=== PATIENT | male | born 1950 | race Caucasian/White ===

== ENCOUNTER 2017-10-18 06:58 | Emergency (ER) | payer SELFPAY ==
[2017-10-18 07:07] VITALS: O2SAT 95
--- NOTE | 2017-10-18 07:17 | EDPHY ---
H & P HPI/ROS: CHIEF COMPLAINT: Back pain HISTORY OF PRESENT ILLNESS: The patient is a 67 y/o male complaining of worsening back pain onset 2 months ago. A couple months ago, he noticed pain in his lumbar spine that extended into his right buttocks, down the front of his thigh, and at times into his lujan. Two weeks ago, the pain worsened, prompting him to begin using a walker. Two days ago the pain worsened prompting his visit. He denies any urinary incontinence, bowel incontinence, numbness, weakness, or any other associated symptoms. He denies trauma or any other precipitating factors. He denies history of hypertension, diabetes, cancer, HIV , TB, recent illness or any other chronic or acute condition. REVIEW OF SYSTEMS: A ten point review of systems was performed and is negative with the exception of the items mentioned in the HPI. Past medical history: Denies Past surgical history: Denies Family history: Non-contributory Social history: Lives in [place], nonsmoker, retired, former heating and air conditioner food technician General Appearance: Alert. Vital signs reviewed. Blood pressure 176/90. Eyes: Pupils equal and round, no conjunctival injection, no discharge. Anicteric. ENT, Mouth: Mucous membranes are moist, no oropharyngeal erythema or edema. Neck: No lymphadenopathy, supple. Respiratory: Lungs are clear to auscultation; no wheezes, rales, or rhonchi. Cardiovascular: Regular rate and rhythm; no murmur, rub, or gallop. Gastrointestinal: Abdomen is soft and nontender, no masses or organomegaly, bowel sounds normal. Skin: Warm and dry, no rashes on exposed skin, normal color. Back: Nontender to palpation over the thoracolumbar spine. No CVAT. Extremities: No lower extremity edema, no calf tenderness or swelling. Neurological: Alert and oriented. In both lower extremities strength is 5 over 5 bilaterally with testing of all major motor groups. Sensation is intact to light touch over all 4 extremities. Deep tendon reflexes are 2+ in the knees left knee, absent in the right knee and 1+ in ankles bilaterally. Gait is antalgic. Psychiatric: Flat affect. - Personal History Current Tetanus/Diphtheria Vaccine: Unsure Current Tetanus Diphtheria and Acellular Pertussis (TDAP): Unsure - Medical/Surgical History Hx Asthma: No Hx Chronic Respiratory Disease: No Hx Diabetes: No Hx Cardiac Disease: No Hx Renal Disease: No Hx Cirrhosis: No Hx Alcoholism: No Hx HIV/AIDS: No Hx Splenectomy or Spleen Trauma: No Other PMH: HERNIA REPAIR - Social History Smoking Status: Never smoked Constitutional: Initial Vital Signs Temperature (C) 36.6 C 10/18/17 07:00 Heart Rate 77 10/18/17 07:00 Respiratory Rate 16 10/18/17 07:00 Blood Pressure 176/90 H 10/18/17 07:00 O2 Sat (%) 95 10/18/17 07:00 O2 Delivery Mode Room Air Allergies/Adverse Reactions: No Known Allergies Allergy (Unverified 10/18/17 07:07) Home Medications: Medication Instructions Recorded Cyclobenzaprine [Flexeril 10 MG 10 mg PO TID PRN #9 tab 10/18/17 (*)] Hydrocodone/APAP 5/325 [[place] 1 - 2 tab PO Q4 PRN #14 tab 10/18/17 5/325 (RX)] Medical Decision Making ED Course/Re-evaluation: Study: MRI of the spine Indication: Pain in the lower back extending into the right leg Results: MRI of the spine was obtained. 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 The study was read by the radiologist, Dr. Queen. I viewed the images myself on the PACS system. I offered the patient anti-inflammatory and pain relief mediation. He initially declined pain relief medications and was tentative to have antiinflammatory medicine. He later accepted both medications (Dilaudid 0.5 mg IV and toradol 30 mg IV, plus lidocaine patch) and agreed to an MRI. I am unable to definitely determine if he has weakness in the right foot, though I am suspicious as he bought a walker two weeks ago to help with ambulation. Individual strength is 5/ 5 right plantar/dorsi/EHL. MRI shows neuroforaminal stenosis due to facet hypertrophy and disc bulging. On reassessment he is more comfortable but continues to have pain. He is still ambulating with the help of his walker. He will need follow up with a internet security specialist or neurosurgeon. The patient agrees to this plan. Referrals provided. Follow up instructions and return precautions given. I have not found a reason for emergent consult or surgery, but have not provided significant pain relief either (he does not want to take medications). I do not suspect serious pathology such as cancer or infection. Differential Diagnosis: I considered a ddx that includes but is not limited to UTI/pyelonephritis, tumor , discitis, spinal cord compression, nerve root compression, cauda equina syndrome, musculoskeletal back pain. - Data Points Medications Given: Discontinued Medications Hydrocodone Bitart/Acetaminophen ([place] 5/325mg Prepack#6) 1 btl TAKEHOME EDNOW ONE Stop: 10/18/17 14:19 Last Admin: 10/18/17 14:59 Dose: 1 btl Cyclobenzaprine HCl (Flexeril 10 Mg Prepack#3) 1 btl TAKEHOME EDNOW ONE Stop: 10/18/17 14:19 Last Admin: 10/18/17 14:57 Dose: 1 btl Hydromorphone HCl (Dilaudid) 0.5 mg IVP EDNOW ONE Stop: 10/18/17 11:12 Last Admin: 10/18/17 11:18 Dose: 0.5 mg Ketorolac Tromethamine (Toradol) 30 mg IVP EDNOW ONE Stop: 10/18/17 07:39 Last Admin: 10/18/17 08:22 Dose: 30 mg Lidocaine (Lidoderm 5%) 1 ea TD EDNOW ONE Stop: 10/18/17 07:41 Last Admin: 10/18/17 08:21 Dose: 1 ea Departure - Departure Disposition: Home, Routine, Self-Care Clinical Impression: Back pain Qualifiers: Back pain location: low back pain Chronicity: acute Back pain laterality: right Sciatica presence: with sciatica Sciatica laterality: sciatica of right side Qualified Code(s): M54.41 - Lumbago with sciatica, right side Condition: Good Instructions: Hydrocodone/Acetaminophen (By mouth), Cyclobenzaprine (By mouth) , Back Pain (ED) Additional Instructions: 1. Take Vicodin and Flexeril as directed as needed for pain. Take 400 to 600 mg of ibuprofen every 6 to 8 hours with food for 5 to 7 days 2. Follow-up with neurosurgery or [facility]. 3. Return to the ED for weakness in your right leg, trouble controlling your bowels or bladder, or other worsening of condition. Referrals: Sai Estrada MD [Medical Doctor] - As per Instructions Vinay Adame MD [Medical Doctor] - As per Instructions Staci Contreras MD [Medical Doctor] - As per Instructions Prescriptions: Cyclobenzaprine [Flexeril 10 MG (*)] 10 mg PO TID PRN #9 tab PRN Reason: Spasms Hydrocodone/APAP 5/325 [[place] 5/325 (RX)] 1 - 2 tab PO Q4 PRN #14 tab PRN Reason: pain Report Scribed for: Vesta Butler Report Scribed by: Chrissy Robles Date of Report: 10/18/17 Time of Report: 07:46 Physician Review and Approval Statement: 10/18/17 07:17 Portions of this note were transcribed by the medical delivery technician. I, Dr. Vesta Butler, personally performed the history, physical exam, and medical decision- making; and confirmed the accuracy of the information in the transcribed note.
[2017-10-18] MEDS ORDERED: KETOROLAC 30 MG/1 ML SDV IVP ONE (07:38)
[2017-10-18] MEDS ORDERED: LIDOCAINE 5% 1 EA PATCH TD ONE (07:40)
[2017-10-18] MEDS ORDERED: HYDROmorphONE/DILAUDID 1 MG/ML INJ IVP ONE (11:11)
[2017-10-18] MEDS ORDERED: HYDROCOD/APAP 5/325 PREPACK#6 BTL TAKEHOME ONE (14:18)
[2017-10-18] MEDS ORDERED: CYCLOBENZAPRINE 10MG PREPACK#3 BTL TAKEHOME ONE (14:18)
[2017-10-18 15:01] VITALS: BP 151/94; PULSE 78; RESP 18; TEMP 98.2
[2017-10-18] MEDS ORDERED: PATCH REMOVAL 1 EA PATCH TD SCH (21:00)
== END 2017-10-18 15:00 | disposition home or self-care (01) ==
LOC: EDUNIT#
DX: M54.41 Lumbago with sciatica, right side (principal)
CPT/HCPCS: 96374; J1170; J1885

== ENCOUNTER 2017-11-11 08:34 | Emergency (ER) | payer SELFPAY ==
[2017-11-11 08:41] VITALS: PULSE 77; RESP 16
[2017-11-11] MEDS ORDERED: ONDANSETRON 4 MG/2 ML VIAL IVP ONE (09:18)
[2017-11-11] MEDS ORDERED: FAMOTIDINE 20 MG/NACL 50 ML IV ONE (09:18)
[2017-11-11] MEDS ORDERED: LIDOCAINE 2% VISCOUS 15 ML UDCUP PO ONE (09:18)
[2017-11-11] MEDS ORDERED: MAG HYDROX/AL HYDROX/SIMETH 30 ML UDCUP PO ONE (09:18)
[2017-11-11] MEDS ORDERED: NS 1,000 ML IV ONE (09:18)
--- NOTE | 2017-11-11 09:23 | EDPHY ---
H & P Time Seen by Provider: 11/11/17 09:14 HPI/ROS: HPI Upper abdominal pain. 67-year-old male on foot. This patient reports that he was taking ibuprofen several times a day 400-600 mg for 2-3 weeks. About a week ago he developed upper mid abdominal pain which she describes as a cramping sensation which comes on in waves of intensity. He reports he stopped taking ibuprofen about 1 week ago. He has also had a loss of appetite. He denies any vomiting. No bloody or melenic stool. He had a few bites of food earlier this morning but states he does not have much of an appetite. He currently does not have abdominal pain. ROS: Constitutional: No fever, no chills. No weakness. Eyes: No discharge. No changes in vision. ENT: No sore throat. No nasal congestion or rhinorrhea. Respiratory: No cough. No shortness of breath. Cardiac: No chest pain, no palpitations. Gastrointestinal: As above, no vomiting, no diarrhea. Genitourinary: No hematuria. No dysuria or increased frequency with urination. Musculoskeletal: No back pain. No neck pain. No myalgias or arthralgias. Skin: No rashes. Neurological: No headache. No focal weakness or altered sensation. Past medical history: Hernia repair, chronic back pain. Social history: He is here by himself. Nonsmoker. Denies alcohol. Physical Exam: General Appearance: Alert, no distress. This patient is responding to questions appropriately and in full sentences. This patient appears well- hydrated and well-nourished. Eyes: Pupils equal and round no pallor or injection. No lid edema, erythema or injection. Respiratory: There are no retractions, lungs are clear to auscultation with good air movement bilaterally. Cardiovascular: Regular rate and rhythm. No murmur. Gastrointestinal: Abdomen is soft and nontender throughout on deep palpation, no masses, bowel sounds normal. No focal tenderness at McBurney's point. No Pisano sign. Neurological: Motor sensory function is grossly intact. Cranial nerves are normal. Gait is normal. Skin: Warm and dry, no rashes. Musculoskeletal: Neck is supple and nontender. Extremities are symmetrical. All joints range without pain or impingement. Psychiatric: No agitation. Flat affect. Database: EKG: Imaging: Upright abdominal x-ray: No free air. No obstructive pattern. Moderate stool. Otherwise unremarkable. Interpreted by me. Procedures: Emergency department course: IV placed. Vital signs reviewed. He was started on IV normal saline with 1 L to be given over the next hour. He will be given 20 mg of IV Pepcid, 4 mg of IV Zofran, viscous lidocaine and Maalox. 10:35 a.m., patient re-evaluated. Resting comfortably at this time. Results of his x-ray as well as blood work discussed with him. Repeat abdominal exam is soft, nontender nondistended as initially. He feels comfortable going home and I feel he is safe for discharge. I instructed him not to use ibuprofen or NSAID medications for pain. I will prescribe a proton pump inhibitor. I will have him follow up with his primary care physician for re-evaluation in the next few days. He endorses this plan. All of his questions were answered. Return to emergency department precautions discussed. He was discharged in good condition. Differential Diagnosis: The differential diagnosis on this patient includes but is not limited to gastritis. Ulcerative gastritis, perforated peptic ulcer, pancreatitis, cholecystitis unlikely. This represents a partial list of diagnoses considered. These considerations are based on history, physical exam, past history, reassessment and diagnostic testing. Smoking Status: Never smoked Constitutional: Initial Vital Signs Temperature (C) 36.7 C 11/11/17 08:36 Heart Rate 77 11/11/17 08:36 Respiratory Rate 16 11/11/17 08:36 Blood Pressure 153/88 H 11/11/17 08:36 O2 Sat (%) 94 11/11/17 08:36 O2 Delivery Mode Room Air Allergies/Adverse Reactions: No Known Allergies Allergy (Verified 11/11/17 08:35) Home Medications: Medication Instructions Recorded Pantoprazole Sodium [Protonix] 40 mg PO DAILY #30 tab 11/11/17 Medical Decision Making - Diagnostics Imaging Results: Imaging Impressions Abdomen X-Ray 11/11/17 09:20 Impression: 1. Nonspecific bowel gas pattern. Moderate pain stool right colon. - Data Points Laboratory Results: Laboratory Results 11/11/17 09:25 11/11/17 09:25 11/11/17 11/11/17 09:25 09:25 WBC 10.09 10^3/uL H 10^3/uL (3.80-9.50) RBC 5.11 10^6/uL 10^6/uL (4.40-6.38) Hgb 15.4 g/dL g/dL (13.7-17.5) Hct 44.7 % % (40.0-51.0) MCV 87.5 fL fL (81.5-99.8) MCH 30.1 pg pg (27.9-34.1) MCHC 34.5 g/dL g/dL (32.4-36.7) RDW 13.1 % % (11.5-15.2) Plt Count 145 10^3/uL L 10^3/uL (150-400) MPV 12.6 fL H fL (8.7-11.7) Neut % (Auto) 70.2 % % (39.3-74.2) Lymph % (Auto) 18.5 % % (15.0-45.0) Archer % (Auto) 8.7 % % (4.5-13.0) Eos % (Auto) 1.3 % % (0.6-7.6) Baso % (Auto) 0.7 % % (0.3-1.7) Nucleat RBC Rel Count 0.0 % % (0.0-0.2) Absolute Neuts (auto) 7.08 10^3/uL H 10^3/uL (1.70-6.50) Absolute Lymphs (auto) 1.87 10^3/uL 10^3/uL (1.00-3.00) Absolute Monos (auto) 0.88 10^3/uL H 10^3/uL (0.30-0.80) Absolute Eos (auto) 0.13 10^3/uL 10^3/uL (0.03-0.40) Absolute Basos (auto) 0.07 10^3/uL 10^3/uL (0.02-0.10) Absolute Nucleated RBC 0.00 10^3/uL 10^3/uL (0-0.01) Immature Gran % 0.6 % % (0.0-1.1) Immature Gran # 0.06 10^3/uL 10^3/uL (0.00-0.10) Sodium 140 mEq/L mEq/L (135-145) Potassium 4.4 mEq/L mEq/L (3.5-5.2) Chloride 102 mEq/L mEq/L (97-110) Carbon Dioxide 25 mEq/l mEq/l (22-31) Anion Gap 13 mEq/L mEq/L (8-16) BUN 17 mg/dL mg/dL (7-23) Creatinine 1.0 mg/dL mg/dL (0.7-1.3) Estimated GFR > 60 Glucose 105 mg/dL H mg/dL (70-100) Calcium 9.8 mg/dL mg/dL (8.5-10.4) Total Bilirubin 0.8 mg/dL mg/dL (0.1-1.4) Conjugated Bilirubin 0.3 mg/dL mg/dL (0.0-0.5) Unconjugated Bilirubin 0.5 mg/dL mg/dL (0.0-1.1) AST 23 IU/L IU/L (17-59) ALT 52 IU/L IU/L (21-72) Alkaline Phosphatase 53 IU/L IU/L (38-126) Total Protein 7.4 g/dL g/dL (6.3-8.2) Albumin 4.4 g/dL g/dL (3.5-5.0) Lipase 96 IU/L IU/L (23-300) Medications Given: Discontinued Medications Al Hydroxide/Mg Hydroxide (Maalox Susp) 30 ml PO ONCE ONE Stop: 11/11/17 09:19 Last Admin: 11/11/17 09:29 Dose: 30 ml Sodium Chloride (Ns) 1,000 mls @ 0 mls/hr IV EDNOW ONE; Wide Open PRN Reason: Protocol Stop: 11/11/17 09:19 Last Admin: 11/11/17 09:31 Dose: 1,000 mls Famotidine/Sodium Chloride (Pepcid 20 Mg (Premix)) 50 mls @ 200 mls/hr IV EDNOW ONE Stop: 11/11/17 09:32 Last Admin: 11/11/17 09:29 Dose: 50 mls Lidocaine (Lidocaine 2% Viscous) 15 ml PO ONCE ONE Stop: 11/11/17 09:19 Last Admin: 11/11/17 09:29 Dose: 15 ml Ondansetron HCl (Zofran) 4 mg IVP EDNOW ONE Stop: 11/11/17 09:19 Last Admin: 11/11/17 09:28 Dose: 4 mg Departure - Departure Disposition: Home, Routine, Self-Care Clinical Impression: Upper abdominal pain, Gastritis Condition: Good Instructions: Gastritis (ED) Additional Instructions: Read and follow provided instructions. Follow-up with your primary care physician in 1-2 days for re-evaluation. Take medication as prescribed. Do not take ibuprofen or other NSAIDs like medications. Return to the emergency department for worsening pain, fever, vomiting or other serious concerns. Referrals: NONE *PRIMARY CARE P,. [Primary Care Provider] - As per Instructions Prescriptions: Pantoprazole Sodium [Protonix] 40 mg PO DAILY #30 tab
[2017-11-11 09:29] LABS: PLATELET COUNT 145 10^3/uL (150-400)
[2017-11-11 11:19] VITALS: BP 161/85; TEMP 98.4; O2SAT 93
== END 2017-11-11 11:17 | disposition home or self-care (01) ==
DX: K29.70 Gastritis, unspecified, without bleeding (principal); E86.9 Volume depletion, unspecified
CPT/HCPCS: 96374; J2405